=== PATIENT | female | born 1980 | race Hispanic/Latino ===

== ENCOUNTER 2022-09-22 09:46 | Emergency (ER) | payer OTHER, MEDICAID, SELFPAY ==
[2022-09-22 09:47] VITALS: BP 112/56; PULSE 64; RESP 14; TEMP 36.4; O2SAT 98; BMI 32.3
--- NOTE | 2022-09-22 09:56 | NURSING ---
NO OLD EKGS
[2022-09-22 10:21] VITALS: BP 119/58; PULSE 65; RESP 18; O2SAT 99
--- NOTE | 2022-09-22 10:41 | EKG12_ITS ---
Test Reason : CHEST TIGHTNESS Blood Pressure : / mmHG Vent. Rate : 062 BPM Atrial Rate : 062 BPM P-R Int : 172 ms QRS Dur : 108 ms QT Int : 420 ms P-R-T Axes : 020 083 029 degrees QTc Int : 426 ms Normal sinus rhythm with sinus arrhythmia Normal ECG Confirmed by PARTH ABBOTT ([id number]), index editor RADHA BATRES ([id number]) on 09/27/2022 8:32:54 AM Referred By: ADONIS/TATO Confirmed By:PARTH ABBOTT
--- NOTE | 2022-09-22 10:42 | EDS_ITS ---
HPI History of Present Illness Chief Complaint: Chest Pain Informant: patient Onset/Context/Timing Onset: Yesterday Timing: Continuous Narrative Narrative: 42-year-old female presenting to the emergency room with chief complaint of chest tightness. Patient lives in [place]. She states that earlier this week she was seen at a [place] emergency department and diagnosed with a kidney i nfection. She started Bactrim today. She states that beginning yesterday she was experiencing some chest tightness. She had some occasional cough but nonproductive. She states she had a very restless night. Today at work she felt fatigued and the tightness/shortness of breath was exacerbated with exertion. She has a history of asthma and used her inhaler and aerosol machine with improvement. She denies any fever runny nose sore throat. She notes some nausea that has been present for 2 weeks. Pain is not reproducible with pushing on her chest. She denies any back pain. She states she has a primary care physician in [place]. She denies any diaphoresis. She notes that the tightness has been constant since yesterday. It does occasionally get worse PFSH PFSH Medical History (Updated 09/22/22 @ 12:[address] Chepe Luu, ) Asthma Home Medications albuterol sulfate 90 mcg/actuation aerosol inhaler (Ventolin HFA) 2 puff inhalation Q4H PRN PRN Wheezing ##1 09/22/22 [Rx Last Taken Unknown] prednisone 20 mg tablet 60 mg (3 x 20 mg) PO DAILY #15 TABLETS 09/22/22 [Rx Last Taken Unknown] sulfamethoxazole 800 mg-trimethoprim 160 mg tablet (Bactrim DS) 1 tab PO BID 09/22/22 [History Last Taken 09/22/22] Allergy/AdvReac Type Severity Reaction Status Date / Time acetaminophen [From Tylenol] Allergy Itching Verified 09/22/22 09:47 Surgical History (Updated 09/22/22 @ 10:25 by Hannah Cartagena) Hx of section Hx of cholecystectomy Social History (Updated 09/22/22 @ 10:[address] Chepe Luu DO) current gender identity: female Smoking Status: Never smoker ROS ROS ED Constitutional Constitutional ED: Denies chills, fever(s) or weight loss Eyes Eyes: Denies change in vision or diplopia ENT ENT ED: Denies ear pain, rhinorrhea or sore throat Cardiovascular Cardiovascular: Reports chest pain; Denies orthopnea, palpitations or racing heartbeat Respiratory/Chest Respiratory/Chest: Reports cough, dyspnea and dyspnea on exertion; Denies orthopnea Gastrointestinal Gastrointestinal: Reports nausea; Denies abdominal pain, diarrhea or vomiting Genitourinary Genitourinary ED: Denies dysuria, hematuria or urinary frequency Musculoskeletal Musculoskeletal: Denies arthralgias, back pain or myalgias Integumentary Denies abscess or rash Neurologic Neurologic: Denies headache(s) or weakness Psychiatric Psychiatric: Denies anxiety, depression, suicidal ideation or suicidal thoughts Endocrine Endocrinology: Denies polydipsia, polyphagia or polyuria Allergic/Immunologic Allergic/Immunologic ED: Denies mouth swelling, tongue swelling or urticaria EXAM Physical Exam Const Vital Signs: 09/22/22 09:47 09/22/22 10:21 09/22/22 10:28 Temperature 97.6 F L Temperature Source Temporal Pulse Rate 64 65 Respiratory Rate 14 18 Respiratory Pattern Normal Blood Pressure 112/56 L 119/58 L Blood Pressure Mean 74 78 Pulse Ox 98 99 Oxygen Delivery Method Room Air Room Air 09/22/22 11:55 Temperature Temperature Source Pulse Rate 61 Respiratory Rate 16 Respiratory Pattern Blood Pressure 120/73 Blood Pressure Mean 88 Pulse Ox 99 Oxygen Delivery Method Room Air Positive well nourished, well developed and obese General Appearance ED: well developed Nutritional Appearance: obese HEENT Reports normocephalic, head/scalp atraumatic and moist mucous membranes Eyes PERRL and EOMs intact bilaterally Neck no lymphadenopathy, supple and no JVD Resp normal respiratory effort Resp Narrative: There are a few scattered wheezes bilaterally Cardio regular rate, regular rhythm and no murmurs GI normal to inspection, nondistended, normoactive bowel sounds and non-tender Palpation: soft Back/Spine no CVA tenderness and normal ROM Extremity normal to inspection General Extremety ED: Negative for edema General Extremity: Negative for edema Neuro oriented x3 and CN's II-XII intact bilaterally Sensorium / Orientation: alert Motor Exam: strength 5/5 throughout Psych mental status grossly normal Mood & Affect: Negative for depressed or tearful Skin no rashes or lesions noted and no wounds MDM MDM MDM Narrative Medical decision making narrative: My interpretation of the chest x-ray is no acute process. EKG shows a normal sinus rhythm without evidence of acute injury. Basic blood work showed a normal CBC. BMP showed a glucose of 86. D-dimer is within the normal limits and troponin is normal. This troponin is in the setting of greater than 24 hours of constant symptoms. At this point I do not see evidence of ACS, dissection, embolism, pneumonia. She did have scattered wheezing after she did breathing treatments. It is possible that her chest tightness is related to asthma. I am going to write for her to have prednisone. She does not believe that she has an albuterol MDI at home. I will write for 1 with a spacer. She should continue her Bactrim for her UTI. She is to follow-up with primary care. History & Record Review Discussion w/independent historian: EMS personnel and Patient Additional record(s) reviewed:: No prior records Lab Data Attestation: I reviewed the patient's lab results. Labs: Laboratory Results - last 24 hr 09/22/22 11:15 WBC 7.0 RBC 4.28 Hgb 13.6 Hct 40.0 MCV 93.5 MCH 31.8 MCHC 34.0 RDW Std Deviation 45.4 H RDW Coeff of Diallo 13.3 Plt Count 314 MPV 9.4 Immature Gran % (Auto) 0.100 Neut % (Auto) 52.7 Lymph % (Auto) 37.8 [place] % (Auto) 8.3 Eos % (Auto) 1.0 Baso % (Auto) 0.1 Absolute Neuts (auto) 3.7 Absolute Lymphs (auto) 2.63 Nucleated RBC % 0 D-Dimer Quant (PE/DVT) 0.47 Sodium 136 Potassium 4.1 Chloride 106 Carbon Dioxide 26.0 Anion Gap 4 L BUN 14 Creatinine 0.90 Estim Creat Clear Calc 71.78 Est GFR (MDRD) Af Amer 88 Est GFR (MDRD) Non-Af 72 BUN/Creatinine Ratio 15.6 Glucose 86 Calcium 9.6 Troponin I High Sens 19 Radiography Diagnostic Testing: Clinical Impression(s) from Imaging Studies Chest X-Ray 09/22/22 11:00 IMPRESSION: No active or acute cardiopulmonary disease. Electronically Signed: Jose E Motley MD at 11:20 EDT , EKG Initial EKG: Attestation: I personally reviewed and interpreted this EKG as follows: Interpretation: Sinus Rhythm Comments: EKG demonstrates a normal sinus rhythm with sinus arrhythmia with a ventricular rate of 62 bpm. Differential Diagnosis Chest pain/SOB: pulmonary embolism, ACS, pneumothorax, pneumonia, aortic dissection, CHF and COPD Discharge Plan Triage Chief Complaint: Chest Pain ED Provider: Chepe Luu Dx/Rx/DC Orders Clinical Impression: Asthma exacerbation, Chest pain Instructions: ED Asthma, Acute (Adult) Prescriptions: New prednisone 20 mg tablet 60 mg PO DAILY Qty: 15 0RF albuterol sulfate [Ventolin HFA] 90 mcg/actuation HFA aerosol inhaler 2 puff inhalation Q4H PRN PRN (Reason: Wheezing) Qty: 1 0RF Rx Instructions: with spacer No Action sulfamethoxazole-trimethoprim [Bactrim DS] 800-160 mg tablet 1 tab PO BID Primary Care Provider: Care Physician,No Primary Referrals: Care Physician,No Primary [Primary Care Provider] - Activity Restrictions/Additional Instructions: As this is your second emergency department visit this week I would recommend following up with your primary care physician to ensure resolution of these illnesses. Disposition Disposition: Home, Self Care
--- NOTE | 2022-09-22 11:00 | RAD_ITS ---
STUDY: X-RAY CHEST REASON FOR EXAM: Female, 42 years old. Chest pain. TECHNIQUE: Single frontal view of the chest. COMPARISON: None. FINDINGS: The lungs are clear and expanded. There is no demonstrated pleural abnormality. Normal size heart. Normal mediastinum and marcia. Normal visualized pulmonary arteries. Normal visualized aortic arch and descending thoracic aorta. Normal visualized thoracic spine. Normal visualized ribs, clavicles, and shoulders. No abnormality of the visualized soft tissue structures of the upper abdomen. RAD/Chest 1 View (Portable) IMPRESSION: No active or acute cardiopulmonary disease. Electronically Signed: Jose E Motley MD at 11:20 EDT ,
[2022-09-22 11:24] LABS: Absolute Lymphocyte Count 2.63 X10^3/uL (0.83-4.51); Absolute Neutrophil Count 3.7 X10^3/uL (2.0-7.7); Basophil# 0.01 X10^3/uL; Basophil% 0.1 % (0-1); Eosinophil# 0.07 X10^3/uL; Hemoglobin 13.6 g/dL (12.0-15.0); Lymphocyte # 2.63 X10^3/ul (0.83-4.51); Lymphocyte % 37.8 % (19-41); Mean Corpuscular Hgb 31.8 pg (27.0-32.0); Mean Corpuscular Volume 93.5 fL (81-99); Mean Platelet Vol. 9.4 fl (6.2-12.0); Monocyte# 0.58 X10^3/uL; Monocyte% 8.3 % (0-10); NRBC Flagged by Analyzer 0 % (0-5); Neutrophil # 3.65 X10^3/uL (2.7-7.7); Neutrophil % 52.7 % (47-70); Platelet Count 314 K/mm3 (150-450); RBC Distribution Width CV 13.3 % (11.6-14.6); RBC Distribution Width SD 45.4 fl (35.1-43.9); Red Blood Count 4.28 M/mm3 (4.2-5.4)
[2022-09-22 11:40] LABS: D-Dimer Quantitative (DVT/PE) 0.47 FEU/ug/m (0.27-0.49)
[2022-09-22 11:50] LABS: Anion Gap 4 (5-15); BUN 14 mg/dL (7-18); BUN/Creat Ratio 15.6 RATIO (10-20); Calcium,Total 9.6 mg/dL (8.5-10.1); Chloride 106 mmol/L (98-107); EST Glomerular Filtration Rate 72 mL/min (>60); Est Glom Filt Rate - Afr Amer 88 mL/min (>60); Estimated Creatinine Clearance 71.78 ml/min; Glucose 86 mg/dL (74-106); Potassium 4.1 mmol/L (3.5-5.1); Sodium Level 136 mmol/L (136-145); Troponin-I HS (w/2H Reflex) 19 pg/mL (3.0-54.0)
[2022-09-22] MEDS: Aspirin 81 MG TAB.CHEW 324 MG PO (11:54)
[2022-09-22 11:55] VITALS: BP 120/73; PULSE 61; RESP 16; O2SAT 99
[2022-09-22 12:20] VITALS: BP 120/74; PULSE 49; RESP 17; O2SAT 99
[2022-09-22 13:20] LABS: Reflex Troponin-HS? (from REC) Y
== END 2022-09-22 12:26 | disposition home or self-care (01) ==
PROVIDERS: Emergency Provider Emergency Medicine; Visit Provider Emergency Medicine
DX: R07.9 Chest pain, unspecified (principal); J45.901 Unspecified asthma with (acute) exacerbation; Z90.49 Acquired absence of other specified parts of digestive tract
CPT/HCPCS: 71045; 80048; 84484; 85025; 85379; 93005; 99285; A4216